=== PATIENT | male | born 1945 | race Caucasian/White ===

== ENCOUNTER 2021-05-09 10:33 | Emergency (ER) | payer OTHER, SELFPAY ==
[2021-05-09] VITALS (7 sets, daily range): BP systolic 104–128; BP diastolic 70–90; PULSE 47–75; RESP 14–19; TEMP 36.9; O2SAT 95–99
--- NOTE | ~2021-05-09 | XR_ITS ---
EXAMINATION: XR chest 1V DATE: 05/09/2021 11:11 INDICATION: Fall TECHNIQUE: frontal view of the chest was obtained. COMPARISON: None FINDINGS: Mild biapical pleural-parenchymal scarring. Calcified nodules in the right midlung zone consistent wi th old granulomatous disease. Streaky opacities at the right lower lung zone and favor atelectasis ov er pneumonia. Tiny left pleural effusion with blunting at the costophrenic angle. No pneumothorax. Th e cardiomediastinal silhouette is normal. Surgical clips in the left and right upper abdomen. Indeter minate round density projecting over the left upper quadrant, possibly a percutaneous gastrostomy tub e or item external to the patient. Correlate with physical exam. Age indeterminate fractures at the a nterior left third, fourth and sixth ribs and of the posterior left fourth-seventh ribs. Right upper extremity peripherally inserted central venous catheter (PICC) tip at the superior vena cava. IMPRESSION: 1. Tiny left pleural effusion and streaky opacities in the left lower lung zone which could represent atelectasis or less likely pneumonia. 2. Multiple age indeterminate anterior and posterior left sided rib fractures. Correlate for focal le ft chest wall pain and clinical history of any prior fractures. Reviewed, dictated and finalized at location B. IMPRESSION: 1. Tiny left pleural effusion and streaky opacities in the left lower lung zone which could represent atelectasis or less likely pneumonia. 2. Multiple age indeterminate anterior and posterior left sided rib fractures. Correlate for focal left chest wall pain and clinical history of any prior frac tures.
--- NOTE | ~2021-05-09 | XR_ITS ---
EXAMINATION: XR hip RT 2V w AP pelvis DATE: 05/09/2021 11:11 INDICATION: Right hip pain and limited range of motion post fall TECHNIQUE: Anteroposterior view of the pelvis and anteroposterior and cross-table lateral views of th e right hip were obtained. COMPARISON: None. FINDINGS: Likely mildly comminuted intratrochanteric fracture of the proximal right femur without significant d isplacement but with mild varus and posterior angulation. Periostitis about the right inferior pubic ramus which could be related to healing subacute fracture. There is however no other evident fracture of the right pubic ring and could not exclude a lytic bone lesion. No other lesions suspicious for f racture identified. Approximately 20 degrees lower lumbar levoscoliosis with severe spondylosis. Mild bilateral hip osteoarthritis. IMPRESSION: 1. Mild varus and posterior angulation of a minimally displaced likely mildly comminuted intertrochan teric fracture the proximal right femur. 2. Periosteal reaction and indistinct cortex along the right inferior pubic ramus which could represe nt a healing subacute fracture although appearance and absence of atypical second fracture of the rig ht pubic ring raises concern for a lytic malignant lesion. Would recommend further evaluation with CT . 2. 20 degrees lower lumbar levoscoliosis with severe spondylosis. Reviewed, dictated and finalized at location B. IMPRESSION: 1. Mild varus and posterior angulation of a minimally displaced likely mildly c omminuted intertrochanteric fracture the proximal right femur. 2. Periosteal reaction and indistinct cortex along the right inferior pubic yeimy us which could represent a healing subacute fracture although appearance and ab sence of atypical second fracture of the right pubic ring raises concern for a lytic malignant lesion. Would recommend further evaluation with CT. 2. 20 degrees lower lumbar levoscoliosis with severe spondylosis.
--- NOTE | ~2021-05-09 | CT_ITS ---
EXAMINATION: CT brain wo con EXAM DATE: 05/09/2021 11:02 INDICATION: Fall. Head injury. TECHNIQUE: Spiral CT of the head was performed without contrast. Axial, coronal and sagittal images were reviewed. The dose-length product (DLP) for this examination was 681.00 mGy-cm. The exposure w as tailored according to patient size, and iterative reconstruction (ASIR) was used as additional dos e reduction technique. There is no prior study for comparison. FINDINGS: There is no acute intraparenchymal hemorrhage. No evidence of intraparenchymal brain mass lesion. No evidence of acute infarction. Please note that initial head CT has limited sensitivity f or small or acute infarctions. There is mild periventricular and subcortical hypodensity, nonspecific but probably related to small vessel ischemic disease. There is moderate prominence of the sulci a nd ventricles related to cerebral atrophy. There is intracranial carotid arteriosclerosis. There a re no extra-axial collections. There is no mass effect or midline shift. The orbits are unremarkabl e. Soft tissue is unremarkable. There is a 2 cm mucous retention cyst in the right maxillary sinus. Mild ethmoid mucoperiosteal thickening. IMPRESSION: 1. No acute intracranial findings. 2. Chronic age related findings. Reviewed, dictated and finalized at location A.
--- NOTE | ~2021-05-09 | CT_ITS ---
EXAMINATION: CT pelvis wo con DATE: 05/09/2021 11:43 INDICATION: Right hip fracture. Suspicious lytic bone lesion at the right inferior pubic ramus. TECHNIQUE: High resolution computed tomography (CT) of the pelvis was performed without intravenous c ontrast. Additional sagittal and coronal reconstructions were performed. Automated exposure control a nd iterative reconstruction technique were employed. The dose-length product was 266.22 mGy-cm. COMPARISON: Radiographs dated 05/09/2021 FINDINGS: Again seen is a comminuted intratrochanteric fracture of the proximal right femur. As previously note d there is mild posterior and varus angulation with some proximal migration of the distal femur. Ther e also appears to be mild external rotation of the distal femur. Right femoral head remains normally located in the right acetabulum with no acetabular fracture. Mild bilateral hip osteoarthritis. There is callus formation which does not yet appear solidly bridging about a nondisplaced fracture of the right inferior pubic ramus. There is some increased lucency at the site of the fracture and could not exclude an underlying lytic lesion however there is no definitive endosteal scalloping and appearanc e could represent either artifact of increasing sclerosis along the margins of the fracture or spotty osteopenia. No other fractures or suspicious lytic or blastic bone lesions identified. Mild lower kori mbar levoscoliosis with severe spondylosis. IMPRESSION: 1. Mild proximal migration, external rotation and mild posterior and varus angulation of a comminuted intertrochanteric fracture of the proximal right femur. 2. Healing subacute appearing fracture of the right inferior pubic ramus with atypical absence of a s econd discernible fracture of the right pubic ring. Assessment equivocal for underlying lytic lesion and secondary pathologic fracture. It is unclear in the setting of subacute changes of healing relate d to the fracture whether MRI would provide any additional benefit in assessment for underlying bone lesion related to either metastatic disease or multiple myeloma. Could also consider either follow-up skeletal survey to assess for any additional lytic lesions or follow-up CT or MRI imaging in a few [facility] at a more advanced stage of healing depending on level of clinical concern. Could also consider assessment of SPEP/UPEP levels. Reviewed, dictated and finalized at location B. IMPRESSION: 1. Mild proximal migration, external rotation and mild posterior and varus angu lation of a comminuted intertrochanteric fracture of the proximal right femur. 2. Healing subacute appearing fracture of the right inferior pubic ramus with a typical absence of a second discernible fracture of the right pubic ring. Asses sment equivocal for underlying lytic lesion and secondary pathologic fracture. It is unclear in the setting of subacute changes of healing related to the frac ture whether MRI would provide any additional benefit in assessment for underly ing bone lesion related to either metastatic disease or multiple myeloma. Could also consider either follow-up skeletal survey to assess for any additional ly tic lesions or follow-up CT or MRI imaging in a few months at a more advanced s tage of healing depending on level of clinical concern. Could also consider ass essment of SPEP/UPEP levels.
--- NOTE | 2021-05-09 11:13 | ECG_ITS ---
Measurements Intervals [place] Rate: 54 P: 87 [place]: 188 QRS: -40 QRSD: 101 T: 27 QT: 429 QTc: 408 Interpretive Statements SINUS BRADYCARDIA WITH SINUS ARRHYTHMIA ATRIAL PREMATURE COMPLEX LEFT AXIS DEVIATION LOW QRS VOLTAGE IN LIMB LEADS BORDERLINE T WAVE ABNORMALITY- INFERIOR LEADS BASELINE ARTIFACT- I, III, AVR, AVL, AVF, V1 BORDERLINE ECG Electronically Signed On 05-09-2021 11:56:20 CDT by Lencho Navarro D.O.
--- NOTE | 2021-05-09 11:21 | ED.GENADULT ---
HPI - General Adult General Chief complaint: Extremity Injury, Lower Stated complaint: R HIP PAIN Source: RN notes reviewed History of Present Illness HPI narrative: Patient presents emergency department from home via EMS for right hip pain. Patient states that this morning is going to answer the door the door was stuck and when the door opened it caused him to fall states he landed on his right hip and has had pain in the right hip since that time unable to move the right hip patient also states he struck his head denies any loss of consciousness but is on Xarelto he denies any other trauma or injury he does currently have a PICC line and states has been receiving daily antibiotics for an infection in his left jaw he was scheduled for surgery last month however secondary to the infection they had stopped the plan for surgery he is supposed to be seen his physician on May 24 to make a decision regarding any further surgeries Related Data Home Medications Medication Instructions Recorded Confirmed lidocaine HCl [Lidocaine Viscous] 1 applic MUCOUS MEMBRANE TID PRN 05/09/21 oxycodone 5 mg PO Q6H PRN 05/09/21 rivaroxaban 20 mg PO DAILY 05/09/21 Allergies Allergy/AdvReac Type Severity Reaction Status Date / Time Penicillins Allergy Rash Verified 05/09/21 11:22 Review of Systems Review of Systems: Gen.: Denies fevers or chills Eyes: Denies eye pain or visual change ENT: Denies congestion Respiratory: Denies shortness of breath or cough CV: Denies chest pain or palpitations GI: Denies abdominal pain nausea, emesis or diarrhea Musculoskeletal: See HPI Neuro: Denies numbness, tingling, weakness or focal weakness Skin: Denies rash Except as documented, all other systems reviewed and negative [facility] Past Medical History Medical History (Updated 05/09/21 @ 16:27 by Dustin Doss DO) Squamous cell carcinoma Social History Social History (Updated 05/09/21 @ 11:22 by Dustin Doss DO) Smoking status: Never smoker Exam Narrative: APPEARANCE: No acute distress, nontoxic, resting in bed EYES: EOMI HEENT: Normocephalic, atraumatic, OMM left jaw with bandage present and swelling RESPIRATORY: No respiratory distress Clear to auscultation bilaterally with no rhonchi wheezing or rales. CARDIOVASCULAR: Regular rate and rhythm without murmurs rubs or gallops. ABDOMINAL: Soft, nontender, nondistended, no rebound or guarding PEG tube present MUSCULOSKELETAl: No clubbing, cyanosis or edema. No tenderness of bilateral upper extremities and left lower extremity tender palpation of the right hip pain with any movement of the right hip no tenderness right knee or ankle, dorsalis pedis pulse 2+ neurovascular intact, PICC line in right upper extremity with no surrounding erythema or signs of infection NEURO: Awake and alert. Following commands, speech normal, no focal deficits SKIN:: Warm, dry. No rashes lesions or abrasions PSYCHIATRIC: Normal affect/mood, Course Course Emergency Course: Discussed with patient and family results of work-up at this time discussed need for admission request patient transferred to [place] where he normally receives his care. I discussed with family subacute fracture seen in pelvis and they do state the patient fell approximately 3 weeks ago patient does have a history of squamous cell carcinoma in the past and then his face and jaw but has been on no chemo for the past [address] Maryjane peetrson at the [place] who accepts the patient Vital Signs Vital signs: Vital Signs Temperature 98.4 F 05/09/21 10:41 Pulse Rate 75 05/09/21 10:41 Respiratory Rate 18 05/09/21 10:41 Blood Pressure 104/90 05/09/21 10:41 Pulse Oximetry 96 05/09/21 10:41 Temperature 98.4 F 05/09/21 10:41 Pulse Rate 47 L 05/09/21 12:58 Respiratory Rate 16 05/09/21 12:58 Blood Pressure 120/71 05/09/21 12:58 Pulse Oximetry 99 05/09/21 12:58 Medical Decision Making Vital Signs Vital
[2021-05-09 12:09] LABS: Basophils Absolute Auto 0.1 K/mm3 (0.0-0.1); Eosinophils Absolute Auto 0.4 K/mm3 (0-0.3); Eosinophils Percent Auto 6.1 % (0-4.4); Hematocrit 29.6 % (42.0-52.0); Hemoglobin 9.1 g/dL (14.0-18.0); Immature Granulocyte Absolute 0.08 K/mm3 (0.00-0.031); Immature Granulocyte Percent A 1.3 % (0-0.5); Lymphocytes Absolute Auto 0.41 K/mm3 (0.9-3.2); Lymphocytes Percent Auto 6.5 % (18.3-44.2); Mean Corpuscular HGB Conc 30.7 g/dl (32-36); Mean Corpuscular Volume 104.2 fl (80-100); Mean Platelet Volume 8.6 fl (7.4-10.4); Monocytes Absolute Auto 0.8 K/mm3 (0.1-0.6); Monocytes Percent Auto 12.5 % (2.6-8.5); Neutrophils Absolute Auto 4.6 K/mm3 (1.3-6.7); Neutrophils Percent Auto 72.6 % (45.5-73.1); Platelet Count Result 211 k/mm3 (150-375); Red Blood Count 2.84 M/mm3 (4.6-6.20); Red Cell Distribution Width 13.3 % (11.5-14.5); White Blood Count 6.3 K/mm3 (4.5-10.0)
[2021-05-09 12:21] LABS: INR 1.7; Prothrombin Time 19.8 Seconds (11.1-14.7)
[2021-05-09 12:22] LABS: Partial Thromboplastin Time 35.2 SECONDS (22.3-36.8)
[2021-05-09 12:24] LABS: Alanine Aminotransferase 16 U/L (4-50); Albumin Level 3.8 g/dL (3.5-5.1); Alkaline Phosphatase 69 U/L (38-126); Anion Gap 7 mmol/L (8-16); Aspartate Amino Transferase 33 U/L (17-59); Bilirubin,Total 0.2 mg/dL (0.2-1.3); Blood Urea Nitrogen 28 mg/dL (9-20); Calcium 9.5 mg/dL (8.4-10.2); Carbon Dioxide 29 mmol/L (22-30); Chloride 97 mmol/L (98-107); Estimated CRCL calculation 48 ml/min; Estimated Glomerular Filt Rate > 60; Glucose 102 mg/dL (65-110); Potassium 4.2 mmol/L (3.4-5.0); Sodium 133 mmol/L (137-145)
[2021-05-09 13:14] LABS: Add Urine Microscopic? YES; Appearance Urine Clear (Clear); Bilirubin Urine Negative (Negative); Blood Urine 1+ (Negative); Color Urine Yellow (Yellow); Glucose Urine UA Negative (Negative); Ketones Urine Negative (Negative); Leukocyte Esterase Ur Negative LEU/UL (Negative); Nitrate Urine Negative (Negative); Protein Urine 1+ mg/dL (Negative); RBC Urine 0-2 /hpf (0-2); Specific Grav Ur 1.015 (1.001-1.035); Urobilinogen Urine Negative mg/dL (<2.0)
[2021-05-09 14:06] LABS: EDCOVIDSCREEN Negative (Negative)
[2021-05-09] MEDS: MORPHINE SULFATE (*CRX) 4 MG/ML INJ IV PUSH ×2 (17:38→22:33)
== END 2021-05-10 01:30 ==
PROVIDERS: Emergency Provider Emergency Medicine; PCP Family Medicine
DX: Z20.822 Contact with and (suspected) exposure to COVID-19 (principal); S72.141A Displaced intertrochanteric fracture of right femur, initial encounter for closed fracture; W01.0XXA Fall on same level from slipping, tripping and stumbling without subsequent striking against object, initial encounter
CPT/HCPCS: 36415; 70450; 71045; 72192; 73502; 80053; 81001; 85025; 85610; 85730; 87426; 93005; 96365; 96375; 96376; 99285; C9803; J0131; J2270